=== PATIENT | male | born 1955 | race African-American/Black ===

== ENCOUNTER 2020-04-09 11:04 | Outpatient (CLI) | payer OTHER ==
[2020-04-09 12:19] LABS: PLATELET COUNT 399 K/uL (142-355)
== END 2020-04-09 14:17 | disposition home or self-care (01) ==
LOC: RAD 11:04
PROVIDERS: ATTEND Internal Medicine
DX: U07.1 COVID-19 (principal); J12.89 Other viral pneumonia
CPT/HCPCS: 80053; 82550; 84439; 84443; 85027

== ENCOUNTER 2022-02-18 08:55 | Outpatient (CLI) | payer OTHER | END 2022-02-18 19:18 | disposition home or self-care (01) | LOC: LABW 08:55 | PROVIDERS: ATTEND Internal Medicine Gastroenterology | DX: K64.0 First degree hemorrhoids (principal) | CPT/HCPCS: 82272 ==

== ENCOUNTER 2023-03-16 15:10 | Emergency (ER) | payer OTHER ==
[~2023-03-16] VITALS: Ht 182.9 cm; Wt 103.4 kg
== END 2023-03-16 17:10 | disposition home or self-care (01) ==
LOC: ED 15:10
PROC: 0HQFXZZ Repair Right Hand Skin, External Approach (ICD-10-PCS; principal; 2023-03-16)
DX: S61.212A Laceration without foreign body of right middle finger without damage to nail, initial encounter (principal); W26.0XXA Contact with knife, initial encounter
CPT/HCPCS: 90471; 90715; 99283